=== PATIENT | male | born 1955 | race Caucasian/White ===

== ENCOUNTER 2025-01-08 07:39 | Outpatient (CLI) | payer OTHER | END 2025-01-08 07:40 | disposition home or self-care (01) | LOC: TOM 07:39 | DX: I71.9 Aortic aneurysm of unspecified site, without rupture (principal) | CPT/HCPCS: 71275 ==

== ENCOUNTER 2025-01-15 07:20 | Outpatient (CLI) | payer OTHER | END 2025-01-15 07:22 | disposition home or self-care (01) | LOC: NUCLEAR 07:20 | PROVIDERS: ATTEND Internal Medicine Cardiovascular Disease | DX: I20.9 Angina pectoris, unspecified (principal) ==